=== PATIENT | female | born 1995 | race Two or more races ===

== ENCOUNTER 2019-10-31 22:40 | Emergency (ER) | payer OTHER ==
[~2019-10-31] VITALS: Ht 160 cm; Wt 68.0 kg
--- NOTE | 2019-10-31 22:50 | NUR ---
PT CAME TO THE ED C/O ABDOMINAL PAIN +NV X 1 DAY. PT IS ON HER PERIOD. UNABLE TO PROVIDE URINE AT THIS TIME. PT AAOX4, VSS, RR EVEN AND UNLABORED ON RA W NAD NOTED. PT CONNECTED TO THE MONITOR AND POX.
[2019-10-31] MEDS ORDERED: ONDANSETRON HCL/PF 4 MG/2 ML VIAL ONE ×2 (22:56→23:35)
[2019-10-31] MEDS ORDERED: IV NS 0.9% 1,000 ML BAG IV ONE (23:00)
[2019-10-31] MEDS ORDERED: ONDANSETRON HCL/PF 4 MG/2 ML VIAL IVP ONE (23:00)
--- NOTE | 2019-10-31 23:00 | NUR ---
BLOOD COLLECTED AND SENT TO LAB
[2019-10-31 23:03] LABS: BASOPHILS % (AUTO) 0.1 % (0.0-2.0); HEMATOCRIT 43 % (33-45); HEMOGLOBIN 14.9 g/dL (11.5-14.8); LYMPHOCYTES # (AUTO) 1.1 /CMM (0.8-4.8); MEAN CORPUSCULAR HGB CONC 35 g/dl (31.0-36.0); MEAN CORPUSCULAR VOLUME 94 fL (82-100); MONOCYTES # (AUTO) 0.5 /CMM (0.1-1.30); MONOCYTES % (AUTO) 4.3 % (2.0-12.0); NEUTROPHILS # (AUTO) 9.5 /CMM (1.8-8.9); NEUTROPHILS % (AUTO) 85.6 % (43.0-81.0); PLATELET COUNT (AUTO) 348 /CMM (150-450); RED BLOOD CELL COUNT(AUTO) 4.56 MIL/uL (4.0-5.2); WHITE BLOOD COUNT (AUTO) 11.1 K/uL (4.3-11.0)
[2019-10-31 23:10] LABS: CALCIUM, SERUM 9.6 mg/dL (8.5-10.1); CREATININE 0.9 mg/dL (0.6-1.3); POTASSIUM 3.8 mmol/L (3.5-5.1)
[2019-10-31 23:15] LABS: ALBUMIN 4.5 g/dL (3.4-5.0); BILIRUBIN,DIRECT 0.2 mg/dL (0.0-0.2); BILIRUBIN,TOTAL 0.9 mg/dL (0.2-1.0); TOTAL PROTEIN, SERUM 8.7 g/dL (6.4-8.2)
[2019-10-31] MEDS ORDERED: ONDANSETRON HCL/PF 4 MG/2 ML VIAL IV ONE (23:30)
--- NOTE | 2019-10-31 23:44 | NUR ---
Pari vargas in [facility] - 10/31/19 at 2345 by DEE XRAY AT BEDSIDE
--- NOTE | 2019-10-31 23:44 | NUR ---
Pari vargas in [facility] - 10/31/19 at 2345 by DEE URINE COLLECTED AND SENT TO LAB
[2019-11-01] MEDS ORDERED: METOCLOPRAMIDE HCL 10 MG/2 ML VIAL IV ONE
[2019-11-01] MEDS ORDERED: METOCLOPRAMIDE HCL 10 MG/2 ML VIAL ONE
[2019-11-01] MEDS ORDERED: ONDANSETRON HCL/PF 4 MG/2 ML VIAL ONE (00:52)
[2019-11-01] MEDS ORDERED: ONDANSETRON HCL/PF 4 MG/2 ML VIAL IV ONE (01:00)
[2019-11-01 01:13] VITALS: BP 124/84
--- NOTE | 2019-11-01 01:13 | NUR ---
Patient discharged to home in stable condition. Written and verbal after care instructions given. Patient verbalizes understanding of instruction.IV removed. Catheter intact and site benign. Pressure and 4x4 applied to site. No bleeding noted. ambulatory with a steady gait
== END 2019-11-01 01:14 | disposition home or self-care (01) ==
LOC: ER 22:40
DX: R11.2 Nausea with vomiting, unspecified (principal)
CPT/HCPCS: 36415; 80048; 80076; 83690; 85025; 96361; 96374; 96375; 96376 ×2; 99284; J2405 ×3; J2765; J7030 ×2